=== PATIENT | female | born 1985 | race Caucasian/White ===

== ENCOUNTER 2017-06-02 08:37 | Inpatient (IN) | payer OTHER ==
[2017-06-02 10:46] VITALS: BMI 30.2
--- NOTE | 2017-06-02 10:53 | HP ---
CIWA Score - CIWA Score Nausea/Vomitin Muscle Tremors: 3 Anxiety: 3 Agitation: 3 Paroxysmal Sweats: 1-Minimal Palms Moist Orientation: 0-Oriented Tacttile Disturbances: 2-Mild Itch/Numbness/Burn Auditory Disturbances: 2-Mild Harshness/Frighten Visual Disturbances: 2-Mild Sensitivity Headache: 2-Mild CIWA-Ar Total Score: 21 Admission ROS BHS - HPI Chief Complaint: i need help to detox from xanax Allergies/Adverse Reactions: Allergies Allergy/AdvReac Type Severity Reaction Status Date / Time No Known Allergies Allergy Verified 06/02/17 11:28 History of Present Illness: this 31 years old female with xanax dependence,oxycodone abused,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 mgs/day,last medicated 06/01/17 syncope last treatment in [facility] in 10/02 longest period of sobriety 3 months anxiety,depression,insomnia cardiomyopahy non compliance Exam Limitations: No Limitations - Ebola screening Have you traveled outside of the country in the last 21 days: No (N) Have you had contact with anyone from an Ebola affected area: No Have you been sick,other than usual withdrawal symptoms: No Do you have a fever: No - Review of Systems Constitutional: Malaise, Night Sweats, Changes in sleep, Weakness EENT: reports: Nose Congestion Respiratory: reports: No Symptoms reported Cardiac: reports: Palpitations GI: reports: Diarrhea, Nausea, Vomiting, Abdominal cramping : reports: No Symptoms Reported Musculoskeletal: reports: Back Pain, Muscle Pain Integumentary: reports: Dryness Neuro: reports: Headache, Tremors Endocrine: reports: No Symptoms Reported Hematology: reports: No Symptoms Reported Psychiatric: reports: Anxious, Depressed, other (insomnia) Patient History - Patient Medical History Hx Anemia: No Hx Asthma: Yes (on albuterol inhaler) Hx Chronic Obstructive Pulmonary Disease (COPD): No Hx Cancer: No Hx Cardiac Disorders: No Hx Congestive Heart Failure: No Hx Hypertension: Yes (cardiomyopathy) Hx Hypercholesterolemia: No Hx Pacemaker: No HX Cerebrovascular Accident: No Hx Seizures: No Hx Dementia: No Hx Diabetes: No Hx Gastrointestinal Disorders: No Hx Liver Disease: No Hx Genitourinary Disorders: No Hx Sexually Transmitted Disorders: No Hx Renal Disease (ESRD): No Hx Thyroid Disease: No Hx Human Immunodeficiency Virus (HIV): No (last 10/02 negative) Hx Hepatitis C: No Hx Depression: Yes (anxiety) Hx Suicide Attempt: No Hx Bipolar Disorder: No Hx Schizophrenia: No Other Medical History: no suicidal,no homicidal,cardiomyopathy non compliance - Patient Surgical History Hx Section: Yes ( section 3 years ago) - PPD History Previous Implant?: Yes Documented Results: Negative w/o proof Implanted On Prior R Admission?: No PPD to be Administered?: Yes - Reproductive History Patient is a Female of Child Bearing Age (11 -55 yrs old): Yes Last Menstrual Period: 05/24/17 Patient : No - Smoking Cessation Smoking history: Current every day smoker Have you smoked in the past 12 months: Yes Aproximately how many cigarettes per day: 20 Cigars Per Day: 0 Hx Chewing Tobacco Use: No Initiated information on smoking cessation: Yes 'Breaking Loose' booklet given: 06/02/17 - Substance & Tx. History Hx Alcohol Use: No Hx Substance Use: Yes Substance Use Type: Opiates, Tranquilizers Hx Substance Use Treatment: Yes ([facility] 10/02 rehab) Family Disease History - Family Disease History Family Disease History: Other: Father (dsa,), Sister (dsa) Admission Physical Exam S - Vital Signs Vital Signs: Vital Signs - 24 hr 06/02/17 10:36 Temperature 96.1 F L Pulse Rate 87 Respiratory 18 Rate Blood Pressure 119/71 - Physical General Appearance: Yes: Moderate Distress, Tremorous, Irritable, Sweating, Anxious HEENTM: Yes: Hearing grossly Normal, Normal ENT Inspection, BIANKA, Pharynx Normal Respiratory: Yes: Lungs Clear, Normal Breath Sounds, No Respiratory Distress, Other (history of asthma) Neck: Yes: Within Normal Limits Breast: Yes: Breast Exam Deferred, Surgical Scar Cardiology: Yes: Within Normal Limits, Regular Rhythm, S1, S2 Abdominal: Yes: Within Normal Limits, Normal Bowel Sounds, Non Tender, Flat, Soft Genitourinary: Yes: Within Normal Limits Back: Yes: Muscle Spasm Musculoskeletal: Yes: full range of Motion, Back pain, Muscle Pain Extremities: Yes: Normal Inspection, Normal Range of Motion, Tremors Neurological: Yes: band lining bander II-XII NML intact, Fully Oriented, Alert, Motor Strength 5/5 Integumentary: Yes: Dry Lymphatic: Yes: Within Normal Limits - Diagnostic (1) Uncomplicated sedative, hypnotic or anxiolytic withdrawal Current Visit: Yes Status: Acute (2) Opiate dependence Current Visit: Yes Status: Acute (3) Methadone maintenance therapy patient Current Visit: Yes Status: Acute (4) Anxiety and depression Current Visit: Yes Status: Acute (5) Insomnia Current Visit: Yes Status: Acute (6) Cardiomyopathy Current Visit: Yes Status: Acute (7) Asthma Current Visit: Yes Status: Acute (8) Low back pain Current Visit: Yes Status: Acute (9) Herniated intervertebral disc of lumbar spine Current Visit: Yes Status: Acute (10) Nicotine dependence Current Visit: Yes Status: Acute Cleared for Admission [facility] - Detox or Rehab [facility] Level of Care: Medically Managed Detox Regimen/Protocol: Valium [facility] Breath Alcohol Content Breath Alcohol Content: 0 Urine Pregancy Test - Result Urine Test Results: Negative- NO Line Present Urine Drug Screen - Results Drug Screen Negative: No Urine Drug Screen Results: BZO-Benzodiazepines, MTD-Methadone, OXY-Oxycodone
[2017-06-02] MEDS ORDERED: IBUPROFEN 400 MG TABLET (FP) PO PRN (12:09)
[2017-06-02] MEDS ORDERED: ACETAMINOPHEN 325 MG TABLET (FP) PO PRN (12:09)
[2017-06-02] MEDS ORDERED: hydrOXYzine PAMOATE 50 MG CAPSULE (FP) PO PRN (12:09)
[2017-06-02] MEDS ORDERED: MAGNESIUM CITRATE 300 ML BOTTLE PO PRN (12:09)
[2017-06-02] MEDS ORDERED: guaiFENesin/D-METHORPHAN HB 10 ML UNIT-DOSE CUPS PO PRN (12:09)
[2017-06-02] MEDS ORDERED: NICOTINE POLACRILEX 2 MG GUM BUC PRN (12:09)
[2017-06-02] MEDS ORDERED: MENTHOL/PHENOL 1 EACH UD MM PRN (12:09)
[2017-06-02] MEDS ORDERED: diazePAM 5 MG TABLET PO ONE (12:09)
[2017-06-02] MEDS ORDERED: P-EPHED 60MG/TRIPROLIDI 2.5MG TABLET PO PRN (12:09)
[2017-06-02] MEDS ORDERED: MAGNESIUM HYDROX 2400MG/30ML ORAL SUSPENSION 30 ML CUP PO PRN (12:09)
[2017-06-02] MEDS ORDERED: LOPERAMIDE HCL 2 MG CAPSULE PO PRN (12:09)
[2017-06-02] MEDS ORDERED: MAG HYDROX/AL HYDROX/SIMETH 30 ML UNIT-DOSE CUP PO PRN (12:09)
[2017-06-02] MEDS ORDERED: ALBUTEROL SO4 6.7 GM HFA INHALER IH PRN (12:13)
[2017-06-02] MEDS ORDERED: METHADONE HCL 40 MG DISPERSABLE TABLET PO ONE (12:29)
[2017-06-02] MEDS: NICOTINE 21 MG/24 HOURS TOPICAL PATCH TD SCH (12:58)
[2017-06-02] MEDS: diazePAM 5 MG TABLET PO SCH ×2 (14:42→22:13)
[2017-06-02 16:00] LABS: URINE APPEARANCE CLEAR; URINE BILIRUBIN NEGATIVE (NEGATIVE); URINE BLOOD NEGATIVE (NEGATIVE); URINE COLOR YELLOW; URINE GLUCOSE (UA) NEGATIVE (NEGATIVE); URINE KETONE NEGATIVE (NEGATIVE); URINE NITRITE NEGATIVE (NEGATIVE); URINE PROTEIN NEGATIVE (NEGATIVE); URINE UROBILINOGEN NEGATIVE mg/dL (0.2-1.0)
[2017-06-02 16:03] LABS: URINE LEUK ESTERASE TRACE (NEGATIVE)
[2017-06-02 16:29] LABS: URINE BACTERIA RARE /hpf (NONE SEEN); URINE HYALINE CAST 1 /lpf; URINE MUCUS RARE; URINE RBC 12 /hpf (0-3); URINE WBC 8 /hpf (3-5)
--- NOTE | 2017-06-02 16:59 | EKG ---
Test Reason : Blood Pressure : / mmHG Vent. Rate : 087 BPM Atrial Rate : 087 BPM P-R Int : 126 ms QRS Dur : 078 ms QT Int : 388 ms P-R-T Axes : 041 009 054 degrees QTc Int : 466 ms NORMAL SINUS RHYTHM NONSPECIFIC T WAVE ABNORMALITY PROLONGED QT ABNORMAL ECG NO PREVIOUS ECGS AVAILABLE Confirmed by ISRAEL ELLSWORTH, FRANCY ([id number]) on 06/02/2017 4:59:33 PM Referred By: Jose Meehan Confirmed By:FRANCY WOOD MD
[2017-06-02] MEDS: diazePAM 5 MG TABLET PO PRN (17:29)
[2017-06-02] MEDS: THIAMINE HCL 100 MG TABLET (FP) PO SCH (22:12)
[2017-06-02] MEDS: CARVEDILOL 6.25 MG TABLET (FP) PO SCH (22:13)
[2017-06-02] MEDS: diphenhydrAMINE HCL 50 MG CAPSULE PO PRN (22:14)
[2017-06-03] MEDS: diazePAM 5 MG TABLET PO SCH ×4 (05:59→22:18)
[2017-06-03] MEDS: METHADONE HCL 40 MG DISPERSABLE TABLET PO SCH (06:02)
--- NOTE | 2017-06-03 10:05 | PN ---
S CIWA - CIWA Score Nausea/Vomitin-No Nausea/No Vomiting Muscle Tremors: 4-Moderate,w/Arms Extend Anxiety: 3 Agitation: 4-Moderately Restless Paroxysmal Sweats: 3 Orientation: 0-Oriented Tacttile Disturbances: 0-None Auditory Disturbances: 0-None Visual Disturbances: 0-None Headache: 0-None Present CIWA-Ar Total Score: 14 BHS Progress Note (SOAP) Subjective: sweats shakes interrupted sleep agitation anxiety Objective: 06/03/17 10:04 Vital Signs Temperature 97.7 F 06/03/17 06:28 Pulse Rate 68 06/03/17 06:28 Respiratory Rate 18 06/03/17 06:28 Blood Pressure 102/64 06/03/17 06:28 O2 Sat by Pulse Oximetry (%) Laboratory Tests 06/02/17 14:10 Urine Color Yellow Urine Appearance Clear Urine pH 5.0 Ur Specific [place] 1.025 Urine Protein Negative Urine Glucose (UA) Negative Urine Ketones Negative Urine Blood Negative Urine Nitrite Negative Urine Bilirubin Negative Urine Urobilinogen Negative Ur Leukocyte Esterase Trace H Urine RBC 12 Urine WBC 8 Ur Epithelial Cells Few Urine Bacteria Rare Hyaline Casts 1 Urine Mucus Rare labs pending awake/alert ambulating no acute distress Assessment: 06/03/17 10:04 withdrawal sx Plan: continue detox increase fluids labs pending
[2017-06-03 10:12] LABS: MCH 30.2 pg (25.7-33.7); MCHC 33.6 g/dl (32.0-36.0); MEAN CELL VOLUME 89.7 fl (80-96); MEAN PLT VOLUME 10.9 fl (7.5-11.1); PLATELET COUNT 147 K/MM3 (134-434); RDW 13.6 % (11.6-15.6); WHITE BLOOD COUNT 7.4 K/mm3 (4.0-10.0)
[2017-06-03] MEDS: PRENATAL VITAMINS W/ FOLIC ACID TABLET (FP) PO SCH (10:15)
[2017-06-03] MEDS: LISINOPRIL 10 MG TABLET (FP) PO SCH (10:15)
[2017-06-03] MEDS: NICOTINE 21 MG/24 HOURS TOPICAL PATCH TD SCH (10:16)
[2017-06-03 10:17] LABS: ALBUMIN 3.4 g/dl (3.4-5.0); ANION GAP 8 (8-16); BILIRUBIN,TOTAL 0.4 mg/dL (0.2-1.0); CALCIUM 8.5 mg/dL (8.5-10.1); CO2 27 mmol/L (21-32); CREATININE 0.7 mg/dL (0.55-1.02); GLUCOSE,RANDOM 92 mg/dL (74-106); SGOT/AST 92 U/L (15-37); SGPT/ALT 133 U/L (12-78); TOT PROT 7.3 g/dl (6.4-8.2)
[2017-06-03 10:18] LABS: ALK PHOS 181 U/L (45-117)
[2017-06-03] MEDS: CARVEDILOL 6.25 MG TABLET (FP) PO SCH ×2 (10:18→22:18)
[2017-06-03] MEDS: FUROSEMIDE 40 MG TABLET (FP) PO SCH (10:18)
--- NOTE | 2017-06-03 10:42 | CONSULT ---
[facility] Psychiatric Consult - Data Date of interview: 06/03/17 Admission source: [facility] Identifying data: First admission to [facility] for this 31 y/o female seeking detox treatment on for benzodiazepine (xanax) and cocaine (crack ) dependence.Patient is single,a mother of one,domiciled (lives in [facility]),unemployed and supported on Public Assistance. Substance Abuse History: Patient smokes one pack of cigarettes daily.She admits to abusing xanax for past 10 years (6 mg or more on a daily basis;last used on ).Started using crack a few months ago (40 dollars/day).Last used three weeks ago.Currently attending a methadone maintenance program (40 mg/day), [facility],in [facility]. Medical History: Bronchial asthma,hypertension,cardiomyopathy,lower back pain and herniated disc (lumbar spine). Psychiatric History: No reported history of psychiatric hospitalizations.No history of OPD care.Ms Arrieta reports taking trazodone 100 mg/hs prescribed by a primary care doctor (last taken three days ago).Patient denies history of suicide attempts. Physical/Sexual Abuse/Trauma History: Patient denies. Mental Status Exam - Mental Status Exam Alert and Oriented to: Time, Place, Person Cognitive Function: Good Patient Appearance: Unkempt, Disheveled (short stature,right nostril pierced with metallic ring,multiple earrings ) Mood: Anxious, Apprehensive Affect: Mood Congruent, Constricted Patient Behavior: Sedated (mild), Fatigued, Cooperative Speech Pattern: Clear, Appropriate Voice Loudness: Normal Thought Process: Goal Oriented Thought Disorder: Not Present Hallucinations: Denies Suicidal Ideation: Denies Homicidal Ideation: Denies Insight/Judgement: Fair Sleep: Fair Appetite: Good Muscle strength/Tone: Normal Gait/Station: Normal Psychiatric Findings - Problem List ([place] 1, 2,3) (1) Uncomplicated sedative, hypnotic or anxiolytic withdrawal Current Visit: Yes Status: Acute (2) Opiate dependence Current Visit: Yes Status: Acute (3) Opioid dependence on agonist therapy Current Visit: Yes Status: Acute (4) Nicotine dependence Current Visit: Yes Status: Acute (5) Substance induced mood disorder Current Visit: Yes Status: Acute (6) Asthma Current Visit: Yes Status: Chronic (7) Cardiomyopathy Current Visit: Yes Status: Chronic (8) Herniated intervertebral disc of lumbar spine Current Visit: Yes Status: Chronic (9) Insomnia Current Visit: Yes Status: Acute (10) Low back pain Current Visit: Yes Status: Chronic - Initial Treatment Plan Initial Treatment Plan: Psychoeducation.No previous records at [facility].Detoxification is in progress.Psychoeducation provided in this session.S report read and appreciated.Trazodone 100 mg po hs.Ordered.Side effects/ benefits discussed with the patient.She is in agreement with this careplan.Observation.
[2017-06-03] MEDS: diazePAM 5 MG TABLET PO PRN (11:13)
[2017-06-03] MEDS ORDERED: PNEUMOC 13-VAL CONJ-DIP CRM/PF 0.5 ML DISP.SYRIN IM ONE (12:00)
[2017-06-03] MEDS: PNEUMOCOCCAL 23 VACCINE 0.5 ML VIAL IM ONE ×2 (12:11→13:04)
[2017-06-03] MEDS: traZODone HCL 100 MG TABLET (FP) PO SCH (22:17)
[2017-06-03] MEDS: THIAMINE HCL 100 MG TABLET (FP) PO SCH (22:18)
[2017-06-04] MEDS: METHADONE HCL 40 MG DISPERSABLE TABLET PO SCH (05:43)
[2017-06-04] MEDS: diazePAM 5 MG TABLET PO SCH ×2 (10:28→22:31)
[2017-06-04] MEDS: FUROSEMIDE 40 MG TABLET (FP) PO SCH (10:28)
[2017-06-04] MEDS: LISINOPRIL 10 MG TABLET (FP) PO SCH (10:28)
[2017-06-04] MEDS: PRENATAL VITAMINS W/ FOLIC ACID TABLET (FP) PO SCH (10:28)
[2017-06-04] MEDS: CARVEDILOL 6.25 MG TABLET (FP) PO SCH (10:28)
[2017-06-04] MEDS: NICOTINE 21 MG/24 HOURS TOPICAL PATCH TD SCH (10:31)
--- NOTE | 2017-06-04 11:17 | PN ---
[facility] CIWA - CIWA Score Nausea/Vomitin-No Nausea/No Vomiting Muscle Tremors: 3 Anxiety: 2 Agitation: 3 Paroxysmal Sweats: 3 Orientation: 0-Oriented Tacttile Disturbances: 0-None Auditory Disturbances: 0-None Visual Disturbances: 0-None Headache: 0-None Present CIWA-Ar Total Score: 11 [facility] Progress Note (SOAP) Subjective: anxiety little sweats interrupted sleep Objective: 06/04/17 11:14 Vital Signs Temperature 97.9 F 06/04/17 10:00 Pulse Rate 77 06/04/17 10:00 Respiratory Rate 18 06/04/17 10:00 Blood Pressure 102/58 06/04/17 10:00 O2 Sat by Pulse Oximetry (%) Laboratory Tests 06/02/17 06/03/17 06/03/17 14:10 06:00 06:00 WBC 7.4 RBC 5.06 Hgb 15.3 Hct 45.4 H MCV 89.7 MCH 30.2 MCHC 33.6 RDW 13.6 Plt Count 147 MPV 10.9 Sodium 140 Potassium 4.6 Chloride 105 Carbon Dioxide 27 Anion Gap 8 BUN 13 Creatinine 0.7 Creat Clearance w eGFR > 60 Random Glucose 92 Calcium 8.5 Total Bilirubin 0.4 AST 92 H ALT 133 H Alkaline Phosphatase 181 H Total Protein 7.3 Albumin 3.4 Urine Color Yellow Urine Appearance Clear Urine pH 5.0 Ur Specific [place] 1.025 Urine Protein Negative Urine Glucose (UA) Negative Urine Ketones Negative Urine Blood Negative Urine Nitrite Negative Urine Bilirubin Negative Urine Urobilinogen Negative Ur Leukocyte Esterase Trace H Urine RBC 12 Urine WBC 8 Ur Epithelial Cells Few Urine Bacteria Rare Hyaline Casts 1 Urine Mucus Rare RPR Titer 06/03/17 06:00 WBC RBC Hgb Hct MCV MCH MCHC RDW Plt Count MPV Sodium Potassium Chloride Carbon Dioxide Anion Gap BUN Creatinine Creat Clearance w eGFR Random Glucose Calcium Total Bilirubin AST ALT Alkaline Phosphatase Total Protein Albumin Urine Color Urine Appearance Urine pH Ur Specific [place] Urine Protein Urine Glucose (UA) Urine Ketones Urine Blood Urine Nitrite Urine Bilirubin Urine Urobilinogen Ur Leukocyte Esterase Urine RBC Urine WBC Ur Epithelial Cells Urine Bacteria Hyaline Casts Urine Mucus RPR Titer Nonreactive elevated ast/alt; repeat labs d/c tylenol awake/alert ambulating BP is WNL therefore carvidilol,lasix on hold for now, continue lisinopril Assessment: 06/04/17 11:16 withdrawal sx Plan: continue detox increase fluids f/u pending labs ordered
[2017-06-04] MEDS: diazePAM 5 MG TABLET PO PRN (18:02)
[2017-06-04] MEDS: traZODone HCL 100 MG TABLET (FP) PO SCH (22:30)
[2017-06-04] MEDS: diphenhydrAMINE HCL 50 MG CAPSULE PO PRN (22:30)
[2017-06-04] MEDS: THIAMINE HCL 100 MG TABLET (FP) PO SCH (22:31)
[2017-06-05] MEDS: METHADONE HCL 40 MG DISPERSABLE TABLET PO SCH (05:24)
[2017-06-05 10:06] LABS: SGOT/AST 88 U/L (15-37); SGPT/ALT 112 U/L (12-78)
[2017-06-05] MEDS: NICOTINE 21 MG/24 HOURS TOPICAL PATCH TD SCH (10:41)
[2017-06-05] MEDS: PRENATAL VITAMINS W/ FOLIC ACID TABLET (FP) PO SCH (10:41)
[2017-06-05] MEDS: LISINOPRIL 10 MG TABLET (FP) PO SCH (10:41)
[2017-06-05] MEDS: diazePAM 5 MG TABLET PO SCH ×2 (10:41→22:28)
--- NOTE | 2017-06-05 12:16 | PN ---
S Progress Note (SOAP) Subjective: ALERT,IRRITABLE,INTERRUPTED SLEEP Objective: 06/05/17 12:15 Vital Signs Temperature 97.3 F L 06/05/17 10:00 Pulse Rate 74 06/05/17 10:00 Respiratory Rate 16 06/05/17 10:00 Blood Pressure 101/64 06/05/17 10:00 O2 Sat by Pulse Oximetry (%) Assessment: 06/05/17 12:16 WITHDRAWAL SYMPTOM Plan: CONTINUE DETOX,DISCHARGE IN AM
[2017-06-05] MEDS: diphenhydrAMINE HCL 50 MG CAPSULE PO PRN (22:28)
[2017-06-05] MEDS: traZODone HCL 100 MG TABLET (FP) PO SCH (22:28)
[2017-06-05] MEDS: THIAMINE HCL 100 MG TABLET (FP) PO SCH (22:29)
[2017-06-06] MEDS: METHADONE HCL 40 MG DISPERSABLE TABLET PO SCH (06:01)
--- NOTE | 2017-06-06 09:06 | DS ---
[facility] Detox Discharge Summary Admission Date: 06/02/17 Discharge Date: 06/06/17 - History Present History: Sedative Dependence, MMTP - Physical Exam Results Vital Signs: Vital Signs Temperature 96.3 F L 06/06/17 06:00 Pulse Rate 80 06/06/17 06:00 Respiratory Rate 18 06/06/17 06:00 Blood Pressure 104/57 06/06/17 06:00 O2 Sat by Pulse Oximetry (%) - Treatment Hospital Course: Detox Protocol Followed, Detoxed Safely, Responded well, Discharged Condition Good - Medication Discharge Medications: Ambulatory Orders Albuterol Sulfate Inhaler - [Ventolin Hfa Inhaler -] 2 inh PO Q4H PRN 06/02/17 Carvedilol [Coreg -] 6.25 mg PO BID 06/02/17 Furosemide [Lasix -] 40 mg PO DAILY 06/02/17 Lisinopril 10 mg PO DAILY 06/02/17 Trazodone HCl [Desyrel -] 100 mg PO HS 06/02/17 Zolpidem Tartrate [Ambien] 5 mg PO HS PRN 06/02/17 Trazodone HCl 100 mg PO HS #30 tablet 06/03/17 - Diagnosis (1) Methadone maintenance therapy patient Current Visit: Yes Status: Chronic (2) Nicotine dependence Current Visit: Yes Status: Chronic Qualifiers: Nicotine product type: cigarettes Substance use status: uncomplicated Qualified Code(s): F17.210 - Nicotine dependence, cigarettes, uncomplicated (3) Uncomplicated sedative, hypnotic or anxiolytic withdrawal Current Visit: Yes Status: Chronic (4) Asthma Current Visit: Yes Status: Chronic Qualifiers: Asthma severity: mild intermittent (5) Cardiomyopathy Current Visit: Yes Status: Chronic Qualifiers: Cardiomyopathy type: unspecified Qualified Code(s): I42.9 - Cardiomyopathy, unspecified (6) Low back pain Current Visit: Yes Status: Chronic Qualifiers: Chronicity: chronic - AMA Did Patient Leave Against Medical Advice: No
[2017-06-06] MEDS ORDERED: diazePAM 5 MG TABLET PO SCH (10:00)
[2017-06-06 10:52] VITALS: BP 122/76; PULSE 83; TEMP 97.9
[2017-06-06] MEDS: PRENATAL VITAMINS W/ FOLIC ACID TABLET (FP) PO SCH (10:52)
[2017-06-06] MEDS: LISINOPRIL 10 MG TABLET (FP) PO SCH (10:52)
[2017-06-06] MEDS: NICOTINE 21 MG/24 HOURS TOPICAL PATCH TD SCH (10:53)
== END 2017-06-06 11:10 | disposition home or self-care (01) | DRG 773 ==
LOC: YASAS 08:37 → Y6N 12:15
PROVIDERS: ADMIT Internal Medicine Addiction Medicine; ATTEND Internal Medicine Addiction Medicine
PROC: HZ2ZZZZ Detoxification Services for Substance Abuse Treatment (ICD-10-PCS; principal; 2017-06-06)
DX: F11.20 Opioid dependence, uncomplicated (principal); F13.230 Sedative, hypnotic or anxiolytic dependence with withdrawal, uncomplicated; F14.20 Cocaine dependence, uncomplicated; F17.210 Nicotine dependence, cigarettes, uncomplicated; F41.8 Other specified anxiety disorders; F19.24 Other psychoactive substance dependence with psychoactive substance-induced mood disorder; I42.9 Cardiomyopathy, unspecified; J45.909 Unspecified asthma, uncomplicated; G47.00 Insomnia, unspecified; M51.26 Other intervertebral disc displacement, lumbar region; M54.5 Low back pain; G89.29 Other chronic pain
CPT/HCPCS: 36415; 80053; 81003; 81015; 84450; 84460; 85027; 86593; 90732; 93005; 93010; G0009

== ENCOUNTER 2017-06-06 11:19 | Inpatient (IN) | payer OTHER ==
--- NOTE | 2017-06-06 13:42 | HP ---
Psychiatrist Admission - Data Date of interview: 06/06/17 Admission source: 6N Identifying data: This is the first inpatient rehabiltation admission for this 31 year old single female who is domiciled, unemployed supported on [employer]. Medical History: Bronchial asthma,hypertension,cardiomyopathy,lower back pain and herniated disc (lumbar spine), smokes cigarettes 1PPD. On MMTP 40 mg/daily. Psychiatric History: Patient reportes history of psychiatric hospitalizations and no history of outpatient psychiatric care, but reports she is on Trazodone 100 mg/hs precsribed by her PCP for insomnia. Was seen by while in detox and continued Trazodone. Physical/Sexual Abuse/Trauma History: Patient denies history of sexual, physical and verbal abuse. Vital Signs: Vital Signs - 24 hr 06/06/17 13:20 Temperature 97.2 F L Pulse Rate 71 Respiratory 18 Rate Blood Pressure 104/64 Allergies/Adverse Reactions: Allergies Allergy/AdvReac Type Severity Reaction Status Date / Time No Known Allergies Allergy Verified 06/02/17 11:28 Date of last physical exam: 06/02/17 Concur with the findings of this exam: Yes - Substance Abuse/Tx History Hx Alcohol Use: Yes Substance Use Type: Cocaine (Started using crack a few months ago (40 dollars/ day).Last used three weeks ago.), Tranquilizers (Xanax, Klonopin (past 12 years) up to 6-10 mg daily) Hx Substance Use Treatment: Yes (detox/rehab.never able to complete.) - Admission Criteria Previous failed treatment: Yes Poor recovery environment: Yes Comorbidities: Yes Lacks judgement: Yes Mental Status Exam - Mental Status Exam Alert and Oriented to: Time, Place, Person Cognitive Function: Good Patient Appearance: Well Groomed Mood: Anxious Affect: Appropriate, Mood Congruent Patient Behavior: Appropriate, Cooperative Speech Pattern: Clear, Appropriate Voice Loudness: Normal Thought Process: Goal Oriented Thought Disorder: Not Present Hallucinations: Denies Suicidal Ideation: Denies Homicidal Ideation: Denies Insight/Judgement: Fair Sleep: Poorly Appetite: Fair Muscle strength/Tone: Normal Gait/Station: Normal Psychiatric Findings - Problem List ([place] 1, 2,3) (1) Insomnia Current Visit: No Status: Acute (2) Opiate dependence Current Visit: No Status: Acute (3) Opioid dependence on agonist therapy Current Visit: No Status: Acute (4) Asthma Current Visit: No Status: Chronic Qualifiers: Asthma severity: mild intermittent (5) Cardiomyopathy Current Visit: No Status: Chronic Qualifiers: Cardiomyopathy type: unspecified Qualified Code(s): I42.9 - Cardiomyopathy, unspecified (6) Herniated intervertebral disc of lumbar spine Current Visit: No Status: Chronic (7) Cocaine abuse Current Visit: Yes Status: Acute - Initial Treatment Plan Initial Treatment Plan: continue Trazodone, monitor progress as needed.
[2017-06-06] MEDS ORDERED: P-EPHED 60MG/TRIPROLIDI 2.5MG TABLET PO PRN (14:36)
[2017-06-06] MEDS ORDERED: MAGNESIUM HYDROX 2400MG/30ML ORAL SUSPENSION 30 ML CUP PO PRN (14:36)
[2017-06-06] MEDS ORDERED: MAG HYDROX/AL HYDROX/SIMETH 30 ML UNIT-DOSE CUP PO PRN (14:36)
[2017-06-06] MEDS ORDERED: guaiFENesin/D-METHORPHAN HB 10 ML UNIT-DOSE CUPS PO PRN (14:36)
[2017-06-06] MEDS ORDERED: MENTHOL/PHENOL 1 EACH UD MM PRN (14:36)
[2017-06-06] MEDS ORDERED: LOPERAMIDE HCL 2 MG CAPSULE PO PRN (14:36)
[2017-06-06] MEDS ORDERED: MAGNESIUM CITRATE 300 ML BOTTLE PO PRN (14:36)
[2017-06-06] MEDS ORDERED: ALBUTEROL SO4 6.7 GM HFA INHALER IH PRN (14:41)
[2017-06-06] MEDS ORDERED: PT OWN MED DRAWER 7, Y5N ONE (19:55)
[2017-06-06] MEDS: CARVEDILOL 6.25 MG TABLET (FP) PO SCH (21:30)
[2017-06-06] MEDS: THIAMINE HCL 100 MG TABLET (FP) PO SCH (21:30)
[2017-06-07] MEDS: METHADONE HCL 40 MG DISPERSABLE TABLET PO SCH (07:00)
[2017-06-07] MEDS ORDERED: PT OWN MED DRAWER 7, Y5N ONE ×2 (08:44→20:36)
[2017-06-07] MEDS: PRENATAL VITAMINS W/ FOLIC ACID TABLET (FP) PO SCH (09:58)
[2017-06-07] MEDS: CARVEDILOL 6.25 MG TABLET (FP) PO SCH ×2 (09:58→21:25)
--- NOTE | 2017-06-07 09:58 | HP ---
[facility] E[facility]OR[facility] Rehab Assess/Revision - Admission History Admitted to Rehab from: [facility] [place] Date of Admission to Rehab: 06/06/17 - Vital signs Vital Signs: Vital Signs Period Temp Pulse Resp BP Sys/Hill Pulse Ox Last 24 Hr 97.2 F-97.7 F 62-79 16-18 99-107/64-76 - Findings Detox History & Physical reviewed: Yes Concur with findings: Yes Comments/Additional Findings: for rehab as protocol
[2017-06-07] MEDS: NICOTINE 21 MG/24 HOURS TOPICAL PATCH TD SCH (09:59)
[2017-06-07] MEDS: FUROSEMIDE 20 MG TABLET (FP) PO SCH (09:59)
[2017-06-07] MEDS: LISINOPRIL 10 MG TABLET (FP) PO SCH (09:59)
[2017-06-07] MEDS: ACETAMINOPHEN 325 MG TABLET (FP) PO PRN ×2 (10:01→20:10)
[2017-06-07 11:37] LABS: HIV 1 & 2 AB NEGATIVE; HIV 1 AGp24 NEGATIVE
[2017-06-07] MEDS: diphenhydrAMINE HCL 50 MG CAPSULE PO PRN (21:25)
[2017-06-07] MEDS: THIAMINE HCL 100 MG TABLET (FP) PO SCH (21:25)
[2017-06-08] MEDS: diphenhydrAMINE HCL 50 MG CAPSULE PO PRN (01:23)
[2017-06-08] MEDS: ACETAMINOPHEN 325 MG TABLET (FP) PO PRN (01:23)
[2017-06-08] MEDS: METHADONE HCL 40 MG DISPERSABLE TABLET PO SCH (06:02)
[2017-06-08] MEDS ORDERED: PT OWN MED DRAWER 7, Y5N ONE ×2 (08:57→19:52)
[2017-06-08] MEDS: PRENATAL VITAMINS W/ FOLIC ACID TABLET (FP) PO SCH (10:00)
[2017-06-08] MEDS: LISINOPRIL 10 MG TABLET (FP) PO SCH (10:00)
[2017-06-08] MEDS: NICOTINE 21 MG/24 HOURS TOPICAL PATCH TD SCH (10:00)
[2017-06-08] MEDS: CARVEDILOL 6.25 MG TABLET (FP) PO SCH ×2 (10:01→21:20)
[2017-06-08] MEDS: FUROSEMIDE 20 MG TABLET (FP) PO SCH (10:01)
[2017-06-08] MEDS: CYCLOBENZAPRINE HCL 10 MG TABLET (FP) PO PRN ×2 (10:57→18:12)
[2017-06-08] MEDS: hydrOXYzine PAMOATE 50 MG CAPSULE (FP) PO PRN ×3 (10:57→21:20)
[2017-06-08] MEDS: IBUPROFEN 400 MG TABLET (FP) PO PRN (15:03)
[2017-06-08] MEDS: THIAMINE HCL 100 MG TABLET (FP) PO SCH (21:21)
[2017-06-09] MEDS: hydrOXYzine PAMOATE 50 MG CAPSULE (FP) PO PRN ×4 (04:15→22:18)
[2017-06-09] MEDS: CYCLOBENZAPRINE HCL 10 MG TABLET (FP) PO PRN ×3 (04:15→21:11)
[2017-06-09] MEDS: METHADONE HCL 40 MG DISPERSABLE TABLET PO SCH (06:07)
[2017-06-09] MEDS: NICOTINE POLACRILEX 2 MG GUM BUC PRN (08:43)
[2017-06-09] MEDS ORDERED: PT OWN MED DRAWER 7, Y5N ONE ×2 (09:05→19:50)
[2017-06-09] MEDS: NICOTINE 21 MG/24 HOURS TOPICAL PATCH TD SCH (10:23)
[2017-06-09] MEDS: PRENATAL VITAMINS W/ FOLIC ACID TABLET (FP) PO SCH (10:24)
[2017-06-09] MEDS: LISINOPRIL 10 MG TABLET (FP) PO SCH (10:24)
[2017-06-09] MEDS: CARVEDILOL 6.25 MG TABLET (FP) PO SCH ×2 (10:24→21:11)
[2017-06-09] MEDS: FUROSEMIDE 20 MG TABLET (FP) PO SCH (10:24)
[2017-06-09] MEDS: THIAMINE HCL 100 MG TABLET (FP) PO SCH (21:11)
[2017-06-09] MEDS: traZODone HCL 100 MG TABLET (FP) PO SCH (21:11)
[2017-06-10] MEDS: METHADONE HCL 40 MG DISPERSABLE TABLET PO SCH (06:01)
[2017-06-10] MEDS: hydrOXYzine PAMOATE 50 MG CAPSULE (FP) PO PRN ×3 (08:07→17:18)
[2017-06-10] MEDS: CARVEDILOL 6.25 MG TABLET (FP) PO SCH ×2 (10:29→21:18)
[2017-06-10] MEDS: LISINOPRIL 10 MG TABLET (FP) PO SCH (10:29)
[2017-06-10] MEDS: FUROSEMIDE 20 MG TABLET (FP) PO SCH (10:29)
[2017-06-10] MEDS: PRENATAL VITAMINS W/ FOLIC ACID TABLET (FP) PO SCH (10:29)
[2017-06-10] MEDS: CYCLOBENZAPRINE HCL 10 MG TABLET (FP) PO PRN (10:31)
[2017-06-10] MEDS: NICOTINE 21 MG/24 HOURS TOPICAL PATCH TD SCH (10:33)
[2017-06-10] MEDS: THIAMINE HCL 100 MG TABLET (FP) PO SCH (21:18)
[2017-06-10] MEDS: traZODone HCL 100 MG TABLET (FP) PO SCH (21:18)
[2017-06-10] MEDS: diphenhydrAMINE HCL 50 MG CAPSULE PO PRN (21:18)
[2017-06-11] MEDS: METHADONE HCL 40 MG DISPERSABLE TABLET PO SCH (06:16)
[2017-06-11] MEDS: NICOTINE 21 MG/24 HOURS TOPICAL PATCH TD SCH (10:21)
[2017-06-11] MEDS: FUROSEMIDE 20 MG TABLET (FP) PO SCH (10:21)
[2017-06-11] MEDS: CARVEDILOL 6.25 MG TABLET (FP) PO SCH ×2 (10:21→21:28)
[2017-06-11] MEDS: LISINOPRIL 10 MG TABLET (FP) PO SCH (10:22)
[2017-06-11] MEDS: PRENATAL VITAMINS W/ FOLIC ACID TABLET (FP) PO SCH (10:22)
[2017-06-11] MEDS: CYCLOBENZAPRINE HCL 10 MG TABLET (FP) PO PRN ×2 (10:23→21:28)
[2017-06-11] MEDS: hydrOXYzine PAMOATE 50 MG CAPSULE (FP) PO PRN ×2 (10:23→21:28)
[2017-06-11] MEDS: traZODone HCL 100 MG TABLET (FP) PO SCH (21:28)
[2017-06-11] MEDS: THIAMINE HCL 100 MG TABLET (FP) PO SCH (21:28)
[2017-06-12] MEDS: METHADONE HCL 40 MG DISPERSABLE TABLET PO SCH (06:02)
[2017-06-12] MEDS: FUROSEMIDE 20 MG TABLET (FP) PO SCH (09:52)
[2017-06-12] MEDS: CARVEDILOL 6.25 MG TABLET (FP) PO SCH ×2 (09:52→21:14)
[2017-06-12] MEDS: LISINOPRIL 10 MG TABLET (FP) PO SCH (09:52)
[2017-06-12] MEDS: hydrOXYzine PAMOATE 50 MG CAPSULE (FP) PO PRN ×2 (09:52→18:58)
[2017-06-12] MEDS: PRENATAL VITAMINS W/ FOLIC ACID TABLET (FP) PO SCH (09:53)
[2017-06-12] MEDS: NICOTINE POLACRILEX 2 MG GUM BUC PRN ×2 (09:53→15:41)
[2017-06-12] MEDS: NICOTINE 21 MG/24 HOURS TOPICAL PATCH TD SCH (09:53)
[2017-06-12] MEDS: NAPHAZOLINE/PHENIRAMINE OPHTHALMIC 15 ML BOTTLE OU SCH ×2 (18:20→21:14)
[2017-06-12] MEDS: traZODone HCL 100 MG TABLET (FP) PO SCH (21:14)
[2017-06-12] MEDS: THIAMINE HCL 100 MG TABLET (FP) PO SCH (21:17)
[2017-06-13] MEDS: METHADONE HCL 40 MG DISPERSABLE TABLET PO SCH (05:53)
[2017-06-13] MEDS: NICOTINE 21 MG/24 HOURS TOPICAL PATCH TD SCH (10:08)
[2017-06-13] MEDS: CARVEDILOL 6.25 MG TABLET (FP) PO SCH ×2 (10:09→21:20)
[2017-06-13] MEDS: FUROSEMIDE 20 MG TABLET (FP) PO SCH (10:09)
[2017-06-13] MEDS: NAPHAZOLINE/PHENIRAMINE OPHTHALMIC 15 ML BOTTLE OU SCH ×4 (10:09→21:20)
[2017-06-13] MEDS: PRENATAL VITAMINS W/ FOLIC ACID TABLET (FP) PO SCH (10:09)
[2017-06-13] MEDS: LISINOPRIL 10 MG TABLET (FP) PO SCH (10:09)
[2017-06-13] MEDS: hydrOXYzine PAMOATE 50 MG CAPSULE (FP) PO PRN ×3 (10:13→17:59)
[2017-06-13] MEDS: ACETAMINOPHEN 325 MG TABLET (FP) PO PRN (15:28)
[2017-06-13] MEDS ORDERED: PT OWN MED DRAWER 7, Y5N ONE (18:00)
[2017-06-13] MEDS: THIAMINE HCL 100 MG TABLET (FP) PO SCH (21:20)
[2017-06-13] MEDS: traZODone HCL 100 MG TABLET (FP) PO SCH (21:20)
[2017-06-14] MEDS: METHADONE HCL 40 MG DISPERSABLE TABLET PO SCH (06:24)
[2017-06-14] MEDS: LISINOPRIL 10 MG TABLET (FP) PO SCH (10:10)
[2017-06-14] MEDS: FUROSEMIDE 20 MG TABLET (FP) PO SCH (10:10)
[2017-06-14] MEDS: CARVEDILOL 6.25 MG TABLET (FP) PO SCH ×2 (10:10→21:08)
[2017-06-14] MEDS: NAPHAZOLINE/PHENIRAMINE OPHTHALMIC 15 ML BOTTLE OU SCH ×4 (10:11→21:08)
[2017-06-14] MEDS: NICOTINE 21 MG/24 HOURS TOPICAL PATCH TD SCH (10:11)
[2017-06-14] MEDS: PRENATAL VITAMINS W/ FOLIC ACID TABLET (FP) PO SCH (10:11)
[2017-06-14] MEDS: hydrOXYzine PAMOATE 50 MG CAPSULE (FP) PO PRN ×3 (10:12→21:08)
[2017-06-14] MEDS: traZODone HCL 100 MG TABLET (FP) PO SCH (21:08)
[2017-06-14] MEDS: THIAMINE HCL 100 MG TABLET (FP) PO SCH (21:08)
[2017-06-15] MEDS: METHADONE HCL 40 MG DISPERSABLE TABLET PO SCH (06:10)
[2017-06-15] MEDS: PRENATAL VITAMINS W/ FOLIC ACID TABLET (FP) PO SCH (09:53)
[2017-06-15] MEDS: FUROSEMIDE 20 MG TABLET (FP) PO SCH (09:53)
[2017-06-15] MEDS: NICOTINE 21 MG/24 HOURS TOPICAL PATCH TD SCH (09:53)
[2017-06-15] MEDS: CARVEDILOL 6.25 MG TABLET (FP) PO SCH ×2 (09:54→21:07)
[2017-06-15] MEDS: hydrOXYzine PAMOATE 50 MG CAPSULE (FP) PO PRN ×3 (09:54→21:06)
[2017-06-15] MEDS: LISINOPRIL 10 MG TABLET (FP) PO SCH (09:54)
[2017-06-15] MEDS: NAPHAZOLINE/PHENIRAMINE OPHTHALMIC 15 ML BOTTLE OU SCH ×4 (09:55→21:07)
[2017-06-15] MEDS: traZODone HCL 100 MG TABLET (FP) PO SCH (21:06)
[2017-06-15] MEDS: THIAMINE HCL 100 MG TABLET (FP) PO SCH (21:06)
[2017-06-16] MEDS: METHADONE HCL 40 MG DISPERSABLE TABLET PO SCH (06:17)
[2017-06-16] MEDS ORDERED: PT OWN MED DRAWER 7, Y5N ONE (08:25)
[2017-06-16] MEDS: NICOTINE 21 MG/24 HOURS TOPICAL PATCH TD SCH (09:53)
[2017-06-16] MEDS: LISINOPRIL 10 MG TABLET (FP) PO SCH (09:54)
[2017-06-16] MEDS: hydrOXYzine PAMOATE 50 MG CAPSULE (FP) PO PRN ×3 (09:54→21:14)
[2017-06-16] MEDS: PRENATAL VITAMINS W/ FOLIC ACID TABLET (FP) PO SCH (09:54)
[2017-06-16] MEDS: NAPHAZOLINE/PHENIRAMINE OPHTHALMIC 15 ML BOTTLE OU SCH ×4 (09:54→21:13)
[2017-06-16] MEDS: CARVEDILOL 6.25 MG TABLET (FP) PO SCH ×2 (09:55→21:14)
[2017-06-16] MEDS: FUROSEMIDE 20 MG TABLET (FP) PO SCH (09:55)
[2017-06-16] MEDS: THIAMINE HCL 100 MG TABLET (FP) PO SCH (21:13)
[2017-06-16] MEDS: traZODone HCL 100 MG TABLET (FP) PO SCH (21:14)
[2017-06-17] MEDS: METHADONE HCL 40 MG DISPERSABLE TABLET PO SCH (06:09)
[2017-06-17] MEDS ORDERED: PT OWN MED DRAWER 7, Y5N ONE ×3 (09:54→21:10)
[2017-06-17] MEDS: PRENATAL VITAMINS W/ FOLIC ACID TABLET (FP) PO SCH (09:55)
[2017-06-17] MEDS: LISINOPRIL 10 MG TABLET (FP) PO SCH (09:55)
[2017-06-17] MEDS: hydrOXYzine PAMOATE 50 MG CAPSULE (FP) PO PRN ×2 (09:55→21:08)
[2017-06-17] MEDS: CARVEDILOL 6.25 MG TABLET (FP) PO SCH ×2 (09:55→21:08)
[2017-06-17] MEDS: NICOTINE 21 MG/24 HOURS TOPICAL PATCH TD SCH (09:55)
[2017-06-17] MEDS: FUROSEMIDE 20 MG TABLET (FP) PO SCH (09:55)
[2017-06-17] MEDS: NAPHAZOLINE/PHENIRAMINE OPHTHALMIC 15 ML BOTTLE OU SCH ×4 (09:56→21:10)
[2017-06-17] MEDS: THIAMINE HCL 100 MG TABLET (FP) PO SCH (21:08)
[2017-06-17] MEDS: traZODone HCL 100 MG TABLET (FP) PO SCH (21:08)
[2017-06-18] MEDS: METHADONE HCL 40 MG DISPERSABLE TABLET PO SCH (06:16)
[2017-06-18] MEDS: NICOTINE 21 MG/24 HOURS TOPICAL PATCH TD SCH (09:43)
[2017-06-18] MEDS: FUROSEMIDE 20 MG TABLET (FP) PO SCH (09:43)
[2017-06-18] MEDS: CARVEDILOL 6.25 MG TABLET (FP) PO SCH ×2 (09:43→21:15)
[2017-06-18] MEDS: PRENATAL VITAMINS W/ FOLIC ACID TABLET (FP) PO SCH (09:44)
[2017-06-18] MEDS: LISINOPRIL 10 MG TABLET (FP) PO SCH (09:44)
[2017-06-18] MEDS: hydrOXYzine PAMOATE 50 MG CAPSULE (FP) PO PRN ×3 (09:45→21:13)
[2017-06-18] MEDS: NAPHAZOLINE/PHENIRAMINE OPHTHALMIC 15 ML BOTTLE OU SCH ×4 (09:45→21:13)
[2017-06-18] MEDS ORDERED: PT OWN MED DRAWER 7, Y5N ONE ×4 (15:01→21:13)
[2017-06-18] MEDS: IBUPROFEN 400 MG TABLET (FP) PO PRN (15:16)
[2017-06-18] MEDS: traZODone HCL 100 MG TABLET (FP) PO SCH (21:13)
[2017-06-18] MEDS: THIAMINE HCL 100 MG TABLET (FP) PO SCH (21:13)
[2017-06-19] MEDS: METHADONE HCL 40 MG DISPERSABLE TABLET PO SCH (06:21)
[2017-06-19] MEDS: NICOTINE POLACRILEX 2 MG GUM BUC PRN (08:31)
[2017-06-19] MEDS: FUROSEMIDE 20 MG TABLET (FP) PO SCH (10:00)
[2017-06-19] MEDS: CARVEDILOL 6.25 MG TABLET (FP) PO SCH ×2 (10:00→21:14)
[2017-06-19] MEDS: NICOTINE 21 MG/24 HOURS TOPICAL PATCH TD SCH (10:01)
[2017-06-19] MEDS: PRENATAL VITAMINS W/ FOLIC ACID TABLET (FP) PO SCH (10:01)
[2017-06-19] MEDS: LISINOPRIL 10 MG TABLET (FP) PO SCH (10:01)
[2017-06-19] MEDS: IBUPROFEN 400 MG TABLET (FP) PO PRN (10:03)
[2017-06-19] MEDS: hydrOXYzine PAMOATE 50 MG CAPSULE (FP) PO PRN ×3 (10:03→21:14)
[2017-06-19] MEDS: NAPHAZOLINE/PHENIRAMINE OPHTHALMIC 15 ML BOTTLE OU SCH ×4 (10:04→21:15)
[2017-06-19] MEDS ORDERED: PT OWN MED DRAWER 7, Y5N ONE ×2 (10:07→14:39)
[2017-06-19] MEDS: traZODone HCL 100 MG TABLET (FP) PO SCH (21:14)
[2017-06-19] MEDS: THIAMINE HCL 100 MG TABLET (FP) PO SCH (21:14)
[2017-06-20] MEDS: METHADONE HCL 40 MG DISPERSABLE TABLET PO SCH (06:18)
[2017-06-20 07:07] VITALS: BP 129/91; PULSE 76; TEMP 97.3
[2017-06-20] MEDS ORDERED: PT OWN MED DRAWER 7, Y5N ONE (08:37)
[2017-06-20] MEDS: FUROSEMIDE 20 MG TABLET (FP) PO SCH (09:34)
[2017-06-20] MEDS: NAPHAZOLINE/PHENIRAMINE OPHTHALMIC 15 ML BOTTLE OU SCH (09:35)
[2017-06-20] MEDS: NICOTINE 21 MG/24 HOURS TOPICAL PATCH TD SCH (09:35)
[2017-06-20] MEDS: PRENATAL VITAMINS W/ FOLIC ACID TABLET (FP) PO SCH (09:35)
[2017-06-20] MEDS: LISINOPRIL 10 MG TABLET (FP) PO SCH (09:35)
[2017-06-20] MEDS: CARVEDILOL 6.25 MG TABLET (FP) PO SCH (09:35)
--- NOTE | 2017-06-20 09:48 | PN ---
Psychiatric Progress Note Vital Signs: Vital Signs Period Temp Pulse Resp BP Sys/Hill Pulse Ox Last 24 Hr 97.3 F 76 16-18 129/91 Date of Session: 06/20/17 Chief Complaint:: Discharge visit HPI: patient addressed Opioid dependence,Cocaine and anxiolytic abuse comorbid with Substance induced mood/sleep disorder. ROS: Significant for BA,Cardiomyopathy,Heraniated disk. Current Medications: Active Medications Generic Name Dose Route Start Last Admin Trade Name Freq PRN Reason Stop Dose Admin Acetaminophen 650 mg 06/06/17 14:36 06/13/17 15:28 Tylenol - PO 650 mg Q4H PRN Administration FEVER OR PAIN Al Hydroxide/Mg Hydroxide 30 ml 06/06/17 14:36 Mylanta Oral Suspension - PO Q6H PRN DYSPEPSIA Albuterol Sulfate 2 puff 06/06/17 14:41 Ventolin Hfa Inhaler - IH Q4H PRN SHORT OF BREATH/WHEEZING Carvedilol 6.25 mg 06/06/17 22:00 06/20/17 09:35 Coreg - PO 6.25 mg BID RANGEL Administration Diphenhydramine HCl 50 mg 06/06/17 14:36 06/10/17 21:18 Benadryl - PO 50 mg HSMR1 PRN Administration FOR ITCHING Eucalyptus/Menthol/Phenol/Sorbitol 1 each 06/06/17 14:36 Cepastat Lozenge - MM Q4H PRN SORE THROAT Furosemide 20 mg 06/07/17 10:00 06/20/17 09:34 Lasix - PO 20 mg DAILY RANGEL Administration Guaifenesin 10 ml 06/06/17 14:36 Robitussin Dm - PO Q6H PRN COUGH Hydroxyzine Pamoate 50 mg 06/08/17 10:36 06/19/17 21:14 Vistaril - PO 50 mg Q4H PRN Administration ANXIETY Ibuprofen 400 mg 06/06/17 14:36 06/19/17 10:03 Motrin - PO 400 mg Q6H PRN Administration PAIN Lisinopril 10 mg 06/07/17 10:00 06/20/17 09:35 Prinivil PO 10 mg DAILY RANGEL Administration Loperamide HCl 4 mg 06/06/17 14:36 Imodium - PO Q6H PRN DIARRHEA Magnesium Hydroxide 30 ml 06/06/17 14:36 Milk Of Magnesia - PO DAILY PRN CONSTIPATION Naphazoline HCl/Pheniramine Maleate 1 drop 06/12/17 18:00 06/20/17 09:35 Visine-A - OU 1 drop QID RANGEL Administration Nicotine 21 mg 06/07/17 10:00 06/20/17 09:35 Nicoderm Patch - TD Not Given DAILY RANGEL Nicotine Polacrilex 2 mg 06/06/17 14:36 06/19/17 08:31 Nicorette Gum - BUC 2 mg Q2H PRN Administration NICOTINE REPLACEMENT RX Multivit/Folic Acid/Iron 1 tab 06/07/17 10:00 06/20/17 09:35 Vitamins (Sjr) - PO 1 tab DAILY RANGEL Administration Pseudoephedrine/Triprolidine 1 combo 06/06/17 14:36 Actifed - PO TID PRN NASAL CONGESTION Thiamine HCl 100 mg 06/06/17 22:00 06/19/17 21:14 Vitamin B1 - PO 100 mg HS RANGLE Administration Trazodone HCl 100 mg 06/09/17 22:00 06/19/17 21:14 Desyrel - PO 100 mg HS RANGEL Administration Current Side Effect: No Lab tests ordered: No Lab tests reviewed: Yes Provider note:: Patient completed this program today.she has met her treatment goals and will continue to address her issues on outpatient basis at [facility] in [facility](40 mg po daily).Patient continues to find that trazodone 100 mg po hs help to reduce her sleeping difficulties,anxiety.Script for 30 days provided. Supportive therapy proivided focusing on relaps prevention, coping skills,support utilization to maintain recovery. Patient is stable for discharge today. Total face to face time:: 30 Mental Status Exam - Mental Status Exam Alert and Oriented to: Time, Place, Person Cognitive Function: Grossly Intact Patient Appearance: Well Groomed Mood: Anxious Affect: Labile Patient Behavior: Cooperative Speech Pattern: Clear Voice Loudness: Normal Thought Process: Goal Oriented Thought Disorder: Not Present Hallucinations: Denies Suicidal Ideation: Denies Homicidal Ideation: Denies Insight/Judgement: Fair Sleep: Fair Appetite: Good Muscle strength/Tone: Normal Gait/Station: Normal Psychiatric Treatment Plan - Problem List (3) Asthma Qualifiers: Asthma severity: mild intermittent (4) Cardiomyopathy Qualifiers: Cardiomyopathy type: unspecified Qualified Code(s): I42.9 - Cardiomyopathy, unspecified (6) Nicotine dependence Qualifiers: Nicotine product type: cigarettes Substance use status: uncomplicated Qualified Code(s): F17.210 - Nicotine dependence, cigarettes, uncomplicated
== END 2017-06-20 10:00 | disposition home or self-care (01) | DRG 772 ==
LOC: YASAS 11:19 → Y3E 11:20
PROVIDERS: ADMIT Psychiatry & Neurology Psychiatry; ATTEND Psychiatry & Neurology Psychiatry
PROC: HZ42ZZZ Group Counseling for Substance Abuse Treatment, Cognitive-Behavioral (ICD-10-PCS; principal; 2017-06-06)
DX: F11.20 Opioid dependence, uncomplicated (principal); F14.10 Cocaine abuse, uncomplicated; F17.210 Nicotine dependence, cigarettes, uncomplicated; I10 Essential (primary) hypertension; I42.9 Cardiomyopathy, unspecified; J45.909 Unspecified asthma, uncomplicated; M51.26 Other intervertebral disc displacement, lumbar region
CPT/HCPCS: 36415; 87389